=== PATIENT | female | born 1965 | race Caucasian/White ===

== ENCOUNTER 2023-08-31 | Emergency (ER) | payer MEDICAID ==
[~2023-08-31] VITALS: Ht 154.9 cm; Wt 61.4 kg
[~2023-08-31] MED LIST: ASPI-1444 PO; ATOR40TA71 PO; CARV6 PO; CHOL200059 PO; INSLAN SQ; PANT-31 PO; SERT-440 PO; TICA90TA PO
[2023-08-31 00:51] LABS: COVID AG,FIA SOURCE NASAL SWAB
[2023-08-31 00:54] LABS: PH,URINE DRUG SCREEN 5.5 (5.0-8.0)
[2023-08-31 00:55] LABS: SARS-COV2 (COVID) ANTIGEN,FIA Negative (Negative)
[2023-08-31 00:56] VITALS: TEMP 97.4
[2023-08-31 01:00] LABS: GLUCOMETER DEV NAME(LOC) ERT.5; GLUCOSE,POINT OF CARE 150 MG/DL (70-110)
[2023-08-31 01:03] LABS: ANION GAP 11 mmol/L (8-16); CALCIUM, TOTAL 8.9 mg/dL (8.8-10.5); CARBON DIOXIDE 25 mmol/L (22-29); CHLORIDE 102 mmol/L (98-107); CREATININE 2.57 mg/dL (0.60-1.30); GLOMERULAR FILTR. RATE CALC 19 mL/min (>60); GLUCOSE,RANDOM 158 mg/dL (70-110); POTASSIUM 3.9 mmol/L (3.5-5.1); SODIUM SERUM 138 mmol/L (136-145); UREA NITROGEN, BLOOD 52 mg/dL (7-18)
[2023-08-31 01:06] LABS: BASOPHILS % (AUTO) 0.7 % (0.0-2.0); EOSINOPHILS % (AUTO) 1.6 % (1.0-6.0); HEMATOCRIT 32.3 % (36-46); HEMOGLOBIN 10.6 g/dL (12.0-16.0); LYMPHOCYTES # (AUTO) 1.5 K/uL (1.0-4.8); LYMPHOCYTES % (AUTO) 20.1 % (22.0-44.0); MEAN CORPUSCULAR HEMOGLOBIN 30.3 pg (26.0-34.0); MEAN CORPUSCULAR HGB CONC 32.8 G/dL (31.0-37.0); MEAN CORPUSCULAR VOLUME 92 fL (80-100); MONOCYTES # (AUTO) 0.5 K/uL (0.1-1.0); MONOCYTES % (AUTO) 7.1 % (2.0-9.0); NEUTROPHILS # (AUTO) 5.3 K/uL (1.8-7.7); NEUTROPHILS % (AUTO) 70.5 % (40.0-70.0); PLATELET COUNT (AUTO) 223 K/uL (150-450); RED CELL DISTRIBUTION WIDTH 15.8 % (11.5-14.5); WHITE BLOOD COUNT (AUTO) 7.5 K/uL (4.5-11.0)
[2023-08-31 01:08] LABS: ALCOHOL, BLOOD (SERUM) < 3 mg/dL (0-10)
[2023-08-31 01:09] LABS: ALCOHOL, URINE DRUG SCREEN NEGATIVE (NEGATIVE); AMPHET/METH SCREEN,URINE NEGATIVE (NEGATIVE); BARBITURATE SCREEN, URINE NEGATIVE (NEGATIVE); BENZODIAZEPINES SCREEN,URINE NEGATIVE (NEGATIVE); CANNABINOID SCREEN,URINE NEGATIVE (NEGATIVE); COCAINE SCREEN,URINE NEGATIVE (NEGATIVE); METHADONE SCREEN, URINE NEGATIVE (NEGATIVE); OPIATE SCREEN,URINE NEGATIVE (NEGATIVE); PHENCYCLIDINE SCREEN,URINE NEGATIVE (NEGATIVE)
[2023-08-31 03:28] LABS: TROPONIN I-HIGH SENSITIVITY 69 ng/L (<51)
[2023-08-31 08:05] VITALS: BP 152/87; PULSE 79; RESP 18
[2023-08-31] MEDS ORDERED: ZOLP5TAB2 PO (22:04)
[2023-08-31] MEDS ORDERED: BUPR-93 PO (22:04)
[2023-08-31] MEDS ORDERED: [UNRECOGNIZED DRUG - CODE] PO (22:04)
[2023-08-31] MEDS ORDERED: TRAZ-186 PO (22:04)
[2023-08-31] MEDS ORDERED: NITR0.4T50 SL (22:04)
[2023-08-31] MEDS ORDERED: FERR-82 PO (22:04)
[2023-08-31] MEDS ORDERED: PREG20SO PO (22:04)
[2023-08-31] MEDS ORDERED: FURO-152 PO (22:04)
[2023-08-31] MEDS ORDERED: LIDO1ADH83 TP (22:04)
[2023-08-31] MEDS ORDERED: LISI-663 PO (22:04)
== END 2023-08-31 08:07 | disposition home or self-care (01) ==
LOC: EMS
DX: F32.9 Major depressive disorder, single episode, unspecified (principal); M25.532 Pain in left wrist; R79.89 Other specified abnormal findings of blood chemistry; E11.22 Type 2 diabetes mellitus with diabetic chronic kidney disease; I12.9 Hypertensive chronic kidney disease with stage 1 through stage 4 chronic kidney disease, or unspecified chronic kidney disease; N18.9 Chronic kidney disease, unspecified; E78.00 Pure hypercholesterolemia, unspecified; F17.210 Nicotine dependence, cigarettes, uncomplicated; Z88.2 Allergy status to sulfonamides; Z20.822 Contact with and (suspected) exposure to COVID-19
CPT/HCPCS: 99285; 87426; 80048; 82962; 84484; 85025; 36415; 93005; 80307; G0480